=== PATIENT | female | born 1955 | race Caucasian/White ===

== ENCOUNTER → 2016-06-23 | Outpatient (CLI) | payer BC ==
[~2016-06-23] MED LIST: ALBUAER2 INH; ASPI81TA28 PO; ATOR10TA82 PO; CLTP PO; FERR1TAB2 PO; FLUT0.15 NAE; LEVO100T PO; PRLSR20 PO
--- NOTE | 2016-06-23 10:23 | DIAGNOSTIC IMAGING REPORT ---
RIGHT SECOND FINGER RADIOGRAPHS CLINICAL HISTORY: INJURY OF INDEX FINGER RIGHT COMPARISON: Right hand radiographs August 05, 2011. FINDINGS: Alignment of the right second finger is anatomic. No acute fracture is identified. There is minimal arthritis of the distal interphalangeal joint. IMPRESSION: No acute fracture or dislocation of the right second finger. Electronically signed by: Vijay Young M.D. 06/23/2016 10:22 AM Dictated Date/Time: 06/23/2016 10:20 AM
== END | disposition home or self-care (01) ==
LOC: C.RAD 10:03
PROVIDERS: ATTEND Physician Assistant Surgical
DX: S69.91XA Unspecified injury of right wrist, hand and finger(s), initial encounter (principal); X58.XXXA Exposure to other specified factors, initial encounter

== ENCOUNTER → 2016-10-12 | Outpatient (CLI) | payer BC ==
[~2016-10-12] MED LIST changes: -ATOR10TA82 PO; +ATOR10TA88 PO
== END | disposition home or self-care (01) ==
LOC: C.PAPS 11:32
PROVIDERS: ATTEND Obstetrics & Gynecology
DX: Z01.419 Encounter for gynecological examination (general) (routine) without abnormal findings (principal)

== ENCOUNTER → 2016-12-15 | Outpatient (CLI) | payer BC ==
[~2016-12-15] MED LIST changes: +ATROPINE SULFATE 0.1 MG/ML 5ML SYR ONE; +DOBUTamine 500MG / 250ML D5W ONE; +METOPROLOL TARTRATE 1 MG/ML VIAL ONE; +PERFLUTREN LIPID MICROSPHERE (DEFINITY) IV ONE
--- NOTE | 2016-12-15 17:31 | DOBUTAMINE ECHO ---
*NOTICE TO RECEIVING [employer]Y This information is strictly Confidential and protected under [place] law. [place] law prohibits you from making any further disclosure of this information unless further disclosure is expressly permitted by the written consent of the person to whom it pertains or is authorized by law. A general authorization for the release of medical or other information is not sufficient for this purpose. Hospital accepts no responsibility if the information is made available to any other person, INCLUDING THE PATIENT. Interpretation Summary * Name: MASON MORALES Study Date: 12/15/2016 10:04 AM BP: 149/51 mmHg * Patient Location: [facility] HR: 64 * : 1955 (M/d/yyyy) Gender: Female Height: 61 in * Age: 61 yrs Ethnicity: [place] Weight: 223 lb * Ordering Physician: Lou Barroso * Referring Physician: Lou Barroso D.O. * Performed By: Nidia Giordano RDCS * * Reason For Study: Chest heaviness * BSA: 2.0 m2 * The study was technically limited. * The study was technically difficult. * There is no comparison study available. * STRESS STUDY: Normal pharmacologic stress echocardiogram. No echocardiographic or ECG evidence of myocardial ischemia having achieved heart rate adequate for diagnostic purposes. * -- Conclusions -- * Ejection Fraction = 60-65%. * There is mild concentric left ventricular hypertrophy. * There is trace mitral regurgitation. * Diastolic dysfunction, Grade II (pseudonormalization pattern). Procedure Details * DOBUTAMINE ECHO, CPT#92332 * ECHO DOPPLER, CPT #[id number] * ECHO COLOR FLOW, CPT #[id number] * A contrast injection of Definity was performed to improve assessment of LV function. * Contrast was injected into an intravenous site in the left arm. * One vial of Definity ultrasound contrast was diluted in normal saline to a total volume of 10 ml. A total of '11' ml of solution was administered during imaging. * Lot # [id number] of Definity utilized for procedure. * Expiration date JAN 06. * The attending nurse who injected the contrast agent was Maria Ines Marcelino RN. * ECHOEX, CPT #39073 Left Ventricle * The left ventricle is normal in size. * There is no thrombus. * There is mild concentric left ventricular hypertrophy. * Ejection Fraction = 60-65%. * Left ventricular systolic function is normal. * The left ventricular ejection fraction increases normally with stress. The left ventricular end-systolic cavity size reduces post-stress (normal response). The left ventricular wall motion with stress is normal. * Resting wall motion: Normal. Stress wall motion: Appropriate increase in Left ventricular systolic function and decrease in cavity size. No stress induced segmental wall motion abnormalities. Right Ventricle * The right ventricle is normal in size and function. Atria * The left atrial size is normal. * Right atrial size is normal. * No ASD detected; PFO is not assessed. Mitral Valve * The mitral valve is normal. * There is no mitral valve stenosis. * There is trace mitral regurgitation. Tricuspid Valve * The tricuspid valve is normal. * There is no tricuspid stenosis. * There is trace tricuspid regurgitation. Aortic Valve * The aortic valve is trileaflet. * No hemodynamically significant valvular aortic stenosis. * No aortic regurgitation is present. Pulmonic Valve * The pulmonic valve is not well visualized. Great Vessels * The aortic root is normal size. Pericardium * There is no pericardial effusion. Stress Parameters * The baseline ECG displays normal sinus rhythm. * The stress portion of this study was personally supervised by the undersigned interpreting physician. * Rest heart rate was '64' BPM. * Rest blood pressure was '149/51' * Maximum heart rate achieved was 141 bpm. * Maximum heart rate was 89 % of maximum age-predicted heart rate. * Maximum blood pressure was '208/57' * Maximum Dobutamine infusion rate was '30' mcg/kg/min. * A total of 0.375 mg of intravenous Atropine was used to supplement Dobutamine for heart rate response. * Dobutamine infusion was terminated due to achieving target heart rate * A total of 5 mg of IV Metoprolol was administered to reverse Dobutamine-induced tachycardia. * The patient did not exhibit any symptoms during drug infusion. Left Ventricular Diastolic Function * Diastolic dysfunction, Grade II (pseudonormalization pattern). MMode 2D Measurements and Calculations IVSd 1.2 cm LVIDd 4.9 cm LVIDs 2.8 cm LVPWd 1.3 cm IVS/LVPW 0.94 FS 42.4 % EDV(Teich) 113.3 ml ESV(Teich) 30.3 ml EF(Teich) 73.2 % EDV(cubed) 118.3 ml ESV(cubed) 22.7 ml EF(cubed) 80.8 % LV mass(C)d 236.2 grams LV mass(C)dI 119.4 grams/m\S\2 SV(Teich) 83.0 ml SI(Teich) 41.9 ml/m\S\2 SV(cubed) 95.6 ml SI(cubed) 48.3 ml/m\S\2 Ao root diam 3.0 cm Ao root area 6.9 cm\S\2 ACS 2.1 cm LA dimension 2.5 cm asc Aorta Diam 2.8 cm LA/Ao 0.83 LVOT diam 2.0 cm LVOT area 3.1 cm\S\2 LVAd ap4 29.4 cm\S\2 LVLd ap4 7.7 cm EDV(MOD-sp4) 95.4 ml EDV(sp4-el) 95.6 ml LVAs ap4 10.4 cm\S\2 LVLs ap4 5.6 cm ESV(MOD-sp4) 16.1 ml ESV(sp4-el) 16.5 ml EF(MOD-sp4) 83.1 % EF(sp4-el) 82.7 % LVAd ap2 18.8 cm\S\2 LVLd ap2 6.6 cm EDV(MOD-sp2) 45.3 ml EDV(sp2-el) 45.5 ml LVAs ap2 7.1 cm\S\2 LVLs ap2 5.3 cm ESV(MOD-sp2) 8.1 ml ESV(sp2-el) 8.1 ml EF(MOD-sp2) 82.2 % EF(sp2-el) 82.1 % LVLd %diff -15.77 % EDV(MOD-bp) 70.2 ml LVLs %diff -5.86 % ESV(MOD-bp) 11.8 ml EF(MOD-bp) 83.2 % SV(MOD-sp4) 79.3 ml SI(MOD-sp4) 40.1 ml/m\S\2 SV(MOD-sp2) 37.2 ml SI(MOD-sp2) 18.8 ml/m\S\2 SV(MOD-bp) 58.4 ml SI(MOD-bp) 29.5 ml/m\S\2 SV(sp4-el) 79.0 ml SI(sp4-el) 39.9 ml/m\S\2 SV(sp2-el) 37.3 ml SI(sp2-el) 18.9 ml/m\S\2 Doppler Measurements and Calculations MV E max efrem 77.1 cm/sec MV A max efrem 53.9 cm/sec MV E/A 1.4 MV dec time 0.24 sec Ao V2 max 110.4 cm/sec Ao max PG 4.9 mmHg Ao max PG (full) 3.2 mmHg XIMENA(V,A) 1.8 cm\S\2 XIMENA(V,D) 1.8 cm\S\2 LV V1 max PG 1.6 mmHg LV V1 max 64.0 cm/sec PA V2 max 50.9 cm/sec PA max PG 1.0 mmHg PA acc slope 461.0 cm/sec\S\2 PA acc time 0.11 sec TR max efrem 90.6 cm/sec PA pr(Accel) 29.0 mmHg
== END | disposition home or self-care (01) ==
LOC: C.CPL 09:41
PROVIDERS: ATTEND Internal Medicine
DX: R07.89 Other chest pain (principal); E66.01 Morbid (severe) obesity due to excess calories; E78.5 Hyperlipidemia, unspecified; Z82.49 Family history of ischemic heart disease and other diseases of the circulatory system